=== PATIENT | female | born 1960 ===

== ENCOUNTER 2018-07-29 08:36 | Outpatient (CLI) | payer OTHER ==
[~2018-07-29] VITALS: Ht 162.6 cm; Wt 71.7 kg
== END 2018-07-29 09:00 | disposition home or self-care (01) ==
LOC: OFIC 805 08:36
DX: H61.23 Impacted cerumen, bilateral (principal); H90.3 Sensorineural hearing loss, bilateral; G44.89 Other headache syndrome

== ENCOUNTER 2018-08-11 14:49 | Outpatient (CLI) | payer OTHER ==
[~2018-08-11] VITALS: Ht 152.4 cm; Wt 71.7 kg
== END 2018-08-11 15:10 | disposition home or self-care (01) ==
LOC: OFIC 805 14:49
DX: H61.23 Impacted cerumen, bilateral (principal)

== ENCOUNTER 2018-08-21 12:47 | Outpatient (CLI) | payer OTHER ==
[~2018-08-21] VITALS: Ht 152.4 cm; Wt 71.7 kg
== END 2018-08-21 13:05 | disposition home or self-care (01) ==
LOC: OFIC 805 12:47
DX: H61.23 Impacted cerumen, bilateral (principal); H90.3 Sensorineural hearing loss, bilateral; E04.1 Nontoxic single thyroid nodule

== ENCOUNTER 2018-09-04 08:16 | Outpatient (CLI) | payer OTHER | END 2018-09-04 08:18 | disposition home or self-care (01) | LOC: SONOGRAMA 08:16 | DX: E04.1 Nontoxic single thyroid nodule (principal) ==

== ENCOUNTER 2018-10-06 12:52 | Outpatient (CLI) | payer OTHER ==
[~2018-10-06] VITALS: Ht 152.4 cm; Wt 71.7 kg
== END 2018-10-06 13:10 | disposition home or self-care (01) ==
LOC: OFIC 805 12:52
DX: M26.69 Other specified disorders of temporomandibular joint (principal); E04.1 Nontoxic single thyroid nodule

== ENCOUNTER 2018-10-17 10:26 | Outpatient (CLI) | payer OTHER | END 2018-10-17 10:39 | disposition home or self-care (01) | LOC: MAMO-SONO 10:26 | DX: N64.1 Fat necrosis of breast (principal); Z12.31 Encounter for screening mammogram for malignant neoplasm of breast ==

== ENCOUNTER → 2018-10-17 | Outpatient (CLI) | payer OTHER | END | disposition home or self-care (01) | LOC: NUCLEAR 10:59 | DX: M81.0 Age-related osteoporosis without current pathological fracture (principal) ==

== ENCOUNTER 2019-01-22 10:07 | Outpatient (CLI) | payer OTHER ==
[~2019-01-22] VITALS: Ht 152.4 cm; Wt 71.7 kg
== END 2019-01-22 15:20 | disposition home or self-care (01) ==
LOC: OFIC 805 10:07
DX: H91.90 Unspecified hearing loss, unspecified ear (principal); M26.69 Other specified disorders of temporomandibular joint; E04.1 Nontoxic single thyroid nodule

== ENCOUNTER 2019-07-06 05:39 | Day surgery (SDC) | payer OTHER ==
[~2019-07-06] VITALS: Ht 162.6 cm; Wt 68.0 kg
[~2019-07-06 05:39] MED LIST: ACTICAL PO; VITATRUE COMBO1 EACH PO; [UNRECOGNIZED DRUG - OTHER] PO
[2019-07-07] MEDS ORDERED: LEVAQUIN500 MG PO (08:33)
[2019-07-07] MEDS ORDERED: QUESTRAN PACKET4 GM PO (08:35)
[2019-07-07] MEDS ORDERED: KETO10TA2 PO (08:35)
== END 2019-07-07 13:00 | disposition home or self-care (01) ==
LOC: SURH 05:39 → O/R 05:39 → SURG 05:39 → CIR.AMB 05:39 → SURG 07:00 → EDSTATUS 09:45 → SURG 09:45 → O/R 10:52 → SURH 10:52 → O/R 07-07 10:37 → SURH 07-07 10:37 → CIR.AMB 07-07 13:00
DX: N81.6 Rectocele (principal); R15.2 Fecal urgency

== ENCOUNTER 2023-01-27 07:00 | Emergency (ER) | payer OTHER ==
[~2023-01-27] VITALS: Ht 162.6 cm; Wt 57.6 kg
[~2023-01-27 07:00] MED LIST changes: +KETO10TA2 PO; +LEVAQUIN500 MG PO; +QUESTRAN PACKET4 GM PO
[2023-01-27] MEDS ORDERED: DOLOGESIC 500-1 EACH PO (07:18)
[2023-01-27] MEDS ORDERED: HORIZANT300 MG PO (07:18)
[2023-01-27] MEDS ORDERED: LEVOFLOXACIN500 MG PO (07:18)
[2023-01-27] MEDS ORDERED: ENDOMETRIN100 MG VAG (07:19)
== END 2023-01-27 15:49 | disposition home or self-care (01) ==
LOC: ER 07:00
PROVIDERS: General Practice
DX: N39.0 Urinary tract infection, site not specified (principal); K59.00 Constipation, unspecified; R10.9 Unspecified abdominal pain; I10 Essential (primary) hypertension; Z20.822 Contact with and (suspected) exposure to COVID-19; Z88.6 Allergy status to analgesic agent; Z88.8 Allergy status to other drugs, medicaments and biological substances